=== PATIENT | female | born 1985 | race Caucasian/White ===

== ENCOUNTER 2019-09-13 11:22 | Emergency (ER) | payer BC ==
[2019-09-13] MEDS ORDERED: Metoclopramide 10 MG/2 ML SDV IVPUSH ONE ×2 (11:45→12:50)
--- NOTE | 2019-09-13 11:47 | EDM.PDOC ---
ED HPI GENERAL MEDICAL PROBLEM - General Chief Complaint: MANAGER ICU Problem Stated Complaint: 12 wks W/ SEVERE MIGRAINE Time Seen by Provider: 09/13/19 11:32 - History of Present Illness INITIAL COMMENTS - FREE TEXT/NARRATIVE: 33-year-old female G5, P4 at approximately 11 weeks by first trimester ultrasound who is presenting with headache and vaginal bleeding. Patient reports that she has a history of migraines and she has had a migrainous headache for the last 10 days. She has been trying Tylenol and showers without effect. Yesterday at around noon she started to develop abdominal cramping and vaginal spotting. She was seen at another ER they were unable to obtain heart tones she was given 2 L of IV fluid for her headache and subsequently discharged she reports that her labs were checked and were good at that time. She called her OB today and was referred into the ER. She reports that she has had some continued spotting. Her headache is generalized and similar to multiple prior migraine headaches. She denies other neurologic signs or symptoms. She has no abdominal pain at this time. headache Pain Score (Numeric/FACES): 8 - Related Data Allergies Allergy/AdvReac Type Severity Reaction Status Date / Time clindamycin Allergy Rash Verified 09/13/19 11:35 Home Meds: Home Meds Escitalopram [Lexapro] 10 mg PO DAILY 02/19/18 [History] Vit #76/Iron,Carb/Fa [Pnv 29-1 Tablet] 1 tab PO DAILY 02/19/18 [History ] Past Medical History HEENT History: Reports: None Cardiovascular History: Reports: None Respiratory History: Reports: None Gastrointestinal History: Reports: GERD Genitourinary History: Reports: None MANAGER ICU History: Reports: Musculoskeletal History: Reports: None Neurological History: Reports: None Psychiatric History: Reports: Anxiety, Depression Endocrine/Metabolic History: Reports: None Hematologic History: Reports: Anemia Immunologic History: Reports: None Oncologic (Cancer) History: Reports: None Dermatologic History: Reports: None - Infectious Disease History Infectious Disease History: Reports: Chicken Pox - Past Surgical History Female Surgical History: Reports: Oophorectomy Other Musculoskeletal Surgeries/Procedures:: Knee reconstruction Social & Family History - Family History Family Medical History: Noncontributory - Tobacco Use Smoking Status *Q: Never Smoker - Caffeine Use Caffeine Use: Reports: Coffee, Soda - Recreational Drug Use Recreational Drug Use: No ED ROS GENERAL - Review of Systems Review Of Systems: See Below Free Text/Narrative/Comment: General: No fever. Skin: No rash. Eyes: No vision problems. ENT: No sore throat. Neck: No neck stiffness. Respiratory: No shortness of breath. Cardiac: No chest pain. Gastrointestinal: Per HPI Urinary: Per HPI Musculoskeletal: No myalgias/arthralgias. Neurologic: No headache. ED EXAM - Physical Exam Exam: See Below Text/Narrative:: General Appearance: No acute distress, appears comfortable Skin: No rash HEENT: Normocephalic/atraumatic, sclera anicteric, mucous membranes moist Neck: Normal range of motion Chest and Lungs: Bilateral breath sounds, clear to auscultation Cardiovascular: Regular rate and rhythm, no murmur Abdomen: Soft, non-tender : Normal external female genitalia, small amount of bright red blood in the vaginal vault, small amount of clear mucus could be physiologic given , external cervical loss closed, no CMT, no abnormal masses Back: Normal Musculoskeletal: No edema or tenderness Neurologic: Awake, alert, no obvious deficits, moving all extremities Psychiatric: Appropriate, cooperative Course - Vital Signs Last Recorded V/S: Last Vital Signs Temp 99.0 F 09/13/19 15:21 Pulse 77 09/13/19 15:21 Resp 17 09/13/19 15:21 BP 110/61 09/13/19 15:21 Pulse Ox 97 09/13/19 15:21 - Orders/Labs/Meds Labs: Laboratory Tests 09/13/19 09/13/19 09/13/19 Range/Units 11:45 11:45 12:05 WBC 7.16 (4.0-11.0) K/uL RBC 4.07 L (4.30-5.90) M/uL Hgb 10.6 L (12.0-16.0) g/dL Hct 33.8 L (36.0-46.0) % MCV 83.0 (80.0-98.0) fL MCH 26.0 L (27.0-32.0) pg MCHC 31.4 (31.0-37.0) g/dL RDW Std Deviation 44.2 (28.0-62.0) fl RDW Coeff of [place] 14 (11.0-15.0) % Plt Count 263 (150-400) K/uL MPV 10.20 (7.40-12.00) fL Neut % (Auto) 67.0 (48.0-80.0) % Lymph % (Auto) 24.3 (16.0-40.0) % [place] % (Auto) 7.0 (0.0-15.0) % Eos % (Auto) 1.4 (0.0-7.0) % Baso % (Auto) 0.3 (0.0-1.5) % Neut # (Auto) 4.8 (1.4-5.7) K/uL Lymph # (Auto) 1.7 (0.6-2.4) K/uL [place] # (Auto) 0.5 (0.0-0.8) K/uL Eos # (Auto) 0.1 (0.0-0.7) K/uL Baso # (Auto) 0.0 (0.0-0.1) K/uL Nucleated RBC % 0.0 /100WBC Nucleated RBCs # 0 K/uL Sodium 140 (136-145) mmol/L Potassium 3.5 (3.5-5.1) mmol/L Chloride 106 (98-107) mmol/L Carbon Dioxide 24.1 (21.0-32.0) mmol/L BUN 6 L (7.0-18.0) mg/dL Creatinine 0.6 (0.6-1.0) mg/dL Est Cr Clr Drug Dosing 103.50 mL/min Estimated GFR (MDRD) > 60.0 ml/min Glucose 82 (74-106) mg/dL Calcium 8.3 L (8.5-10.1) mg/dL Total Bilirubin 0.4 (0.2-1.0) mg/dL AST 16 (15-37) IU/L ALT 20 (14-63) IU/L Alkaline Phosphatase 42 L (46-116) U/L Total Protein 6.7 (6.4-8.2) g/dL Albumin 3.5 (3.4-5.0) g/dL Globulin 3.2 (2.6-4.0) g/dL Albumin/Globulin Ratio 1.1 (0.9-1.6) Urine Color Urine Appearance Urine pH (5.0-8.0) Ur Specific [place] (1.001-1.035) Urine Protein (NEGATIVE) mg/dL Urine Glucose (UA) (NEGATIVE) mg/dL Urine Ketones (NEGATIVE) mg/dL Urine Occult Blood (NEGATIVE) Urine Nitrite (NEGATIVE) Urine Bilirubin (NEGATIVE) Urine Urobilinogen (<2.0) EU/dL Ur Leukocyte Esterase (NEGATIVE) Urine RBC (0-2/HPF) Urine WBC (0-5/HPF) Ur Epithelial Cells (NONE-FEW) Urine Bacteria (NEGATIVE) [place] species DNA NEGATIVE (NEGATIVE) Gardnerella DNA Probe POSITIVE H (NEGATIVE) Trichomonas DNA Probe NEGATIVE (NEGATIVE) 09/13/19 Range/Units 13:40 WBC (4.0-11.0) K/uL RBC (4.30-5.90) M/uL Hgb (12.0-16.0) g/dL Hct (36.0-46.0) % MCV (80.0-98.0) fL MCH (27.0-32.0) pg MCHC (31.0-37.0) g/dL RDW Std Deviation (28.0-62.0) fl RDW Coeff of [place] (11.0-15.0) % Plt Count (150-400) K/uL MPV (7.40-12.00) fL Neut % (Auto) (48.0-80.0) % Lymph % (Auto) (16.0-40.0) % [place] % (Auto) (0.0-15.0) % Eos % (Auto) (0.0-7.0) % Baso % (Auto) (0.0-1.5) % Neut # (Auto) (1.4-5.7) K/uL Lymph # (Auto) (0.6-2.4) K/uL [place] # (Auto) (0.0-0.8) K/uL Eos # (Auto) (0.0-0.7) K/uL Baso # (Auto) (0.0-0.1) K/uL Nucleated RBC % /100WBC Nucleated RBCs # K/uL Sodium (136-145) mmol/L Potassium (3.5-5.1) mmol/L Chloride (98-107) mmol/L Carbon Dioxide (21.0-32.0) mmol/L BUN (7.0-18.0) mg/dL Creatinine (0.6-1.0) mg/dL Est Cr Clr Drug Dosing mL/min Estimated GFR (MDRD) ml/min Glucose (74-106) mg/dL Calcium (8.5-10.1) mg/dL Total Bilirubin (0.2-1.0) mg/dL AST (15-37) IU/L ALT (14-63) IU/L Alkaline Phosphatase (46-116) U/L Total Protein (6.4-8.2) g/dL Albumin (3.4-5.0) g/dL Globulin (2.6-4.0) g/dL Albumin/Globulin Ratio (0.9-1.6) Urine Color YELLOW Urine Appearance HAZY Urine pH 7.0 (5.0-8.0) Ur Specific [place] 1.010 (1.001-1.035) Urine Protein NEGATIVE (NEGATIVE) mg/dL Urine Glucose (UA) NEGATIVE (NEGATIVE) mg/dL Urine Ketones NEGATIVE (NEGATIVE) mg/dL Urine Occult Blood MODERATE H (NEGATIVE) Urine Nitrite NEGATIVE (NEGATIVE) Urine Bilirubin NEGATIVE (NEGATIVE) Urine Urobilinogen 0.2 (<2.0) EU/dL Ur Leukocyte Esterase NEGATIVE (NEGATIVE) Urine RBC 1-5 (0-2/HPF) Urine WBC 0-1 (0-5/HPF) Ur Epithelial Cells RARE (NONE-FEW) Urine Bacteria RARE (NEGATIVE) [place] species DNA (NEGATIVE) Gardnerella DNA Probe (NEGATIVE) Trichomonas DNA Probe (NEGATIVE) Meds: Medications Discontinued Medications Generic Name Dose Route Start Last Admin Trade Name Freq PRN Reason Stop Dose Admin Diphenhydramine HCl 25 mg 09/13/19 12:50 09/13/19 12:58 Benadryl IVPUSH 09/13/19 12:51 25 mg ONETIME ONE Administration Metoclopramide HCl 10 mg 09/13/19 11:45 09/13/19 11:54 Reglan IVPUSH 09/13/19 11:46 10 mg ONETIME ONE Administration Metoclopramide HCl 20 mg 09/13/19 12:50 09/13/19 12:58 Reglan IVPUSH 09/13/19 12:51 20 mg ONETIME ONE Administration Morphine Sulfate 8 mg 09/13/19 13:59 Morphine IVPUSH 09/13/19 14:00 ONETIME ONE Departure - Departure Time of Disposition: 15:09 Disposition: Home, Self-Care 01 Condition: Good Clinical Impression: Migraine, Incomplete miscarriage - Discharge Information Instructions: Migraine Headache, [id number] Referrals: Cody Schroeder Jr, PA-C [Primary Care Provider] - Forms: ED Department Discharge Additional Instructions: As you discussed with Dr. Arvizu you are free to take your medications at home to help improve your migraine. Please be sure to follow-up with them in clinic next week to talk more about your miscarriage. If in the coming days your bleeding worsens to the point that you are soaking through 2 pads or tampons within an hour for 2 more hours, or if you develop shortness of breath lightheadedness or chest pain, then please return to the ER so that we can do another exam and check your blood counts again. The following information is given to patients seen in the emergency department who are being discharged to home. This information is to outline your options for follow-up care. We provide all patients seen in our emergency department with a follow-up referral. The need for follow-up, as well as the timing and circumstances, are variable depending upon the specifics of your emergency department visit. If you don't have a primary care physician on staff, we will provide you with a referral. We always advise you to contact your personal physician following an emergency department visit to inform them of the circumstance of the visit and for follow-up with them and/or the need for any referrals to a consulting specialist. The emergency department will also refer you to a specialist when appropriate. This referral assures that you have the opportunity for follow-up care with a specialist. All of these measure are taken in an effort to provide you with optimal care, which includes your follow-up. Under all circumstances we always encourage you to contact your private physician who remains a resource for coordinating your care. When calling for follow-up care, please make the office aware that this follow-up is from your recent emergency room visit. If for any reason you are refused follow-up, please contact the [facility] Emergency Department at and asked to speak to the emergency department charge nurse. Sepsis Event Note - Evaluation Sepsis Screening Result: No Definite Risk - Focused Exam Vital Signs: Vital Signs Temp Pulse Resp BP Pulse Ox 09/13/19 15:21 99.0 F 77 17 110/61 97 09/13/19 14:35 89 18 109/83 100 09/13/19 14:05 86 18 121/53 L 97 09/13/19 13:45 67 18 98/53 L 99 09/13/19 13:15 74 18 106/60 98 09/13/19 13:01 91 16 97/57 L 100 09/13/19 11:36 97.3 F 83 18 122/73 100 Date Exam was Performed: 09/13/19 Time Exam was Performed: 19:04 - Assessment/Plan Assessment:: 33-year-old female presenting with migraine headache and vaginal bleeding in the setting of her semester . Clinically well-appearing. Will do a bedside ultrasound to assess heart tones if unable to obtain reassuring heart tones can consider formal ultrasound at that time. CBC CMP ordered as well patient a positive from prior in the chart so no need to repeat that. Patient was recently tested for gonorrhea and chlamydia and was negative. Will repeat vaginitis screen however. Pelvic exam is pending. Regarding headache it is similar to multiple prior migraines. No concern for intracranial hemorrhage meningitis, encephalitis or other acute DIRECTOR OF STRATEGIC SALES pathology be a migraine headache. Attempted bedside ultrasound was unable to obtain reliable heart tone though I do see what appears to be an intrauterine gestation. Formal ultrasound is been ordered. Pelvic exam demonstrates ongoing bleeding consistent with vaginal bleeding and early . But no pooling no active hemorrhage and cervix closed. Pt was given a 2nd dose of reglan, 20mg wiht 25mg benadryl with good improvement in her headache. Pt's labs notable for + Gardnerella but otherwise unremarkable. US with no heart motion. Patient discussed with Dr. Arvizu who is neonatal social worker for the patient's OB. She will come talk to the patient and discuss her options. Dr. Arvizu came and spoke to the patient. Her headache is improved and the patient will follow-up in OB clinic next week regarding the miscarriage.
[2019-09-13 12:13] LABS: BLOOD UREA NITROGEN,BUN 6 mg/dL (7.0-18.0); CARBON DIOXIDE,CO2 24.1 mmol/L (21.0-32.0); CHLORIDE,CL 106 mmol/L (98-107); GLUCOSE RANDOM 82 mg/dL (74-106); POTASSIUM,K 3.5 mmol/L (3.5-5.1); SODIUM,NA 140 mmol/L (136-145)
[2019-09-13] MEDS ORDERED: diphenhydrAMINE 50 MG/ML SDV IVPUSH ONE (12:50)
[2019-09-13] MEDS ORDERED: Morphine 10 MG/ML Syringe IVPUSH ONE (13:59)
--- NOTE | 2019-09-13 14:15 | US ---
INDICATION: Migraine, spotting TECHNIQUE: Ultrasound OB pelvis transabdominal and transvaginal. Real time mcdonald scale imaging of the pelvis was performed. COMPARISON: None FINDINGS: Sonographic imaging demonstrates a single intrauterine gestational sac w with a pole identified and crown-rump length of 0.98 centimeters consistent with a gestational age of 8 weeks 4 days. No heart motion identified. Yolk sac not identified. The cervix is closed. The myometrium appears normal. The ovaries are of normal size. There are no suspicious fluid collections noted in the cul-de-sac. IMPRESSION: Single intrauterine gestation with crown-rump length consistent with a gestational age of 8 weeks 4 days. No evidence for heart motion. Correlate with beta HCG levels. Follow up recommended to evaluate for demise. Dictated by Eric Macdonald MD @ 09/13/2019 2:14:59 PM Dictated by: Eric Macdonald MD @ 09/13/2019 14:15:03 (Electronically Signed)
--- NOTE | 2019-09-13 15:47 | PCM.CONS ---
H&P History of Present Illness - General Date of Service: 09/13/19 Admit Problem/Dx: Headache Vaginal spotting in Source of Information: Patient History Limitations: Reports: No Limitations - History of Present Illness Initial Comments - Free Text/Narative: Patient notified clinic of continued migraine headache this AM. Had presented to [facility] overnight after migraine unresponsive to conservative measures at home. Patient had developed mild spotting and cramping last evening. Discussed presenting to [place] ER this morning for headache management and evaluation of spotting, as unable to dopple FHTs in [place] ER last night. In the ER, patient received IV fluids and Reglan, with some improvement headache. Spotting has continued, no heavy bleeding or severe abdominal cramping. 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 History: Reports: Endometriosis, (10w4d by LMP c/w 9wk US) : 5 Para: 4 Musculoskeletal History: Reports: None, Fibromyalgia Neurological History: Reports: Migraines Psychiatric History: Reports: Anxiety, Depression Endocrine/Metabolic History: Reports: None Hematologic History: Reports: Anemia Immunologic History: Reports: None Oncologic (Cancer) History: Reports: None Dermatologic History: Reports: None - Infectious Disease History Infectious Disease History: Reports: Chicken Pox - Past Surgical History Female Surgical History: Reports: Oophorectomy Other Musculoskeletal Surgeries/Procedures:: Knee reconstruction Social & Family History - Family History Family Medical History: Noncontributory Cardiac: Reports: Aneurysm (paternal grandmother) Respiratory: Reports: Asthma (daughter) OBGYN: Reports: Fibroids (mother) Oncologic: Reports: Breast (maternal grandmother), Prostate (maternal grandfather, paternal grandfather) - Tobacco Use Smoking Status *Q: Never Smoker - Caffeine Use Caffeine Use: Reports: Coffee, Soda - Recreational Drug Use Recreational Drug Use: No H&P Review of Systems - Review of Systems: Review Of Systems: See Below General: Reports: No Symptoms HEENT: Reports: Headaches Pulmonary: Reports: No Symptoms Cardiovascular: Reports: No Symptoms Gastrointestinal: Reports: Abdominal Pain (mild) Genitourinary: Reports: No Symptoms Musculoskeletal: Reports: No Symptoms Skin: Reports: No Symptoms Psychiatric: Reports: No Symptoms Neurological: Reports: No Symptoms Hematologic/Lymphatic: Reports: No Symptoms Immunologic: Reports: No Symptoms Exam - Exam Exam: See Below - Vital Signs Vital Signs: Last Vital Signs Temp 36.3 C 09/13/19 11:36 Pulse 89 09/13/19 14:35 Resp 18 09/13/19 14:35 BP 109/83 09/13/19 14:35 Pulse Ox 100 09/13/19 14:35 Weight: 58.967 kg - Exam General: Alert, Oriented, 4 Neck: Supple Lungs: Clear to Auscultation, Normal Respiratory Effort Cardiovascular: Regular Rate, Regular Rhythm GI/Abdominal Exam: Soft, Non-Tender (Female) Exam: Deferred Extremities: Non-Tender, No Pedal Edema Skin: Warm, Dry, Intact Neuro Extensive - Mental Status: Alert, Oriented x3, Normal Mood/Affect Psychiatric: Alert, Normal Affect, Normal Mood - Patient Data Lab Results Last 24 hrs: Laboratory Results - last 24 hr 09/13/19 09/13/19 09/13/19 Range/Units 11:45 11:45 12:05 WBC 7.16 (4.0-11.0) K/uL RBC 4.07 L (4.30-5.90) M/uL Hgb 10.6 L (12.0-16.0) g/dL Hct 33.8 L (36.0-46.0) % MCV 83.0 (80.0-98.0) fL MCH 26.0 L (27.0-32.0) pg MCHC 31.4 (31.0-37.0) g/dL RDW Std Deviation 44.2 (28.0-62.0) fl RDW Coeff of [place] 14 (11.0-15.0) % Plt Count 263 (150-400) K/uL MPV 10.20 (7.40-12.00) fL Neut % (Auto) 67.0 (48.0-80.0) % Lymph % (Auto) 24.3 (16.0-40.0) % [place] % (Auto) 7.0 (0.0-15.0) % Eos % (Auto) 1.4 (0.0-7.0) % Baso % (Auto) 0.3 (0.0-1.5) % Neut # (Auto) 4.8 (1.4-5.7) K/uL Lymph # (Auto) 1.7 (0.6-2.4) K/uL [place] # (Auto) 0.5 (0.0-0.8) K/uL Eos # (Auto) 0.1 (0.0-0.7) K/uL Baso # (Auto) 0.0 (0.0-0.1) K/uL Nucleated RBC % 0.0 /100WBC Nucleated RBCs # 0 K/uL Sodium 140 (136-145) mmol/L Potassium 3.5 (3.5-5.1) mmol/L Chloride 106 (98-107) mmol/L Carbon Dioxide 24.1 (21.0-32.0) mmol/L BUN 6 L (7.0-18.0) mg/dL Creatinine 0.6 (0.6-1.0) mg/dL Est Cr Clr Drug Dosing 103.50 mL/min Estimated GFR (MDRD) > 60.0 ml/min Glucose 82 (74-106) mg/dL Calcium 8.3 L (8.5-10.1) mg/dL Total Bilirubin 0.4 (0.2-1.0) mg/dL AST 16 (15-37) IU/L ALT 20 (14-63) IU/L Alkaline Phosphatase 42 L (46-116) U/L Total Protein 6.7 (6.4-8.2) g/dL Albumin 3.5 (3.4-5.0) g/dL Globulin 3.2 (2.6-4.0) g/dL Albumin/Globulin Ratio 1.1 (0.9-1.6) Urine Color Urine Appearance Urine pH (5.0-8.0) Ur Specific [place] (1.001-1.035) Urine Protein (NEGATIVE) mg/dL Urine Glucose (UA) (NEGATIVE) mg/dL Urine Ketones (NEGATIVE) mg/dL Urine Occult Blood (NEGATIVE) Urine Nitrite (NEGATIVE) Urine Bilirubin (NEGATIVE) Urine Urobilinogen (<2.0) EU/dL Ur Leukocyte Esterase (NEGATIVE) Urine RBC (0-2/HPF) Urine WBC (0-5/HPF) Ur Epithelial Cells (NONE-FEW) Urine Bacteria (NEGATIVE) [place] species DNA NEGATIVE (NEGATIVE) [place]rella DNA Probe POSITIVE H (NEGATIVE) Trichomonas DNA Probe NEGATIVE (NEGATIVE) 09/13/19 Range/Units 13:40 WBC (4.0-11.0) K/uL RBC (4.30-5.90) M/uL Hgb (12.0-16.0) g/dL Hct (36.0-46.0) % MCV (80.0-98.0) fL MCH (27.0-32.0) pg MCHC (31.0-37.0) g/dL RDW Std Deviation (28.0-62.0) fl RDW Coeff of [place] (11.0-15.0) % Plt Count (150-400) K/uL MPV (7.40-12.00) fL Neut % (Auto) (48.0-80.0) % Lymph % (Auto) (16.0-40.0) % [place] % (Auto) (0.0-15.0) % Eos % (Auto) (0.0-7.0) % Baso % (Auto) (0.0-1.5) % Neut # (Auto) (1.4-5.7) K/uL Lymph # (Auto) (0.6-2.4) K/uL [place] # (Auto) (0.0-0.8) K/uL Eos # (Auto) (0.0-0.7) K/uL Baso # (Auto) (0.0-0.1) K/uL Nucleated RBC % /100WBC Nucleated RBCs # K/uL Sodium (136-145) mmol/L Potassium (3.5-5.1) mmol/L Chloride (98-107) mmol/L Carbon Dioxide (21.0-32.0) mmol/L BUN (7.0-18.0) mg/dL Creatinine (0.6-1.0) mg/dL Est Cr Clr Drug Dosing mL/min Estimated GFR (MDRD) ml/min Glucose (74-106) mg/dL Calcium (8.5-10.1) mg/dL Total Bilirubin (0.2-1.0) mg/dL AST (15-37) IU/L ALT (14-63) IU/L Alkaline Phosphatase (46-116) U/L Total Protein (6.4-8.2) g/dL Albumin (3.4-5.0) g/dL Globulin (2.6-4.0) g/dL Albumin/Globulin Ratio (0.9-1.6) Urine Color YELLOW Urine Appearance HAZY Urine pH 7.0 (5.0-8.0) Ur Specific [place] 1.010 (1.001-1.035) Urine Protein NEGATIVE (NEGATIVE) mg/dL Urine Glucose (UA) NEGATIVE (NEGATIVE) mg/dL Urine Ketones NEGATIVE (NEGATIVE) mg/dL Urine Occult Blood MODERATE H (NEGATIVE) Urine Nitrite NEGATIVE (NEGATIVE) Urine Bilirubin NEGATIVE (NEGATIVE) Urine Urobilinogen 0.2 (<2.0) EU/dL Ur Leukocyte Esterase NEGATIVE (NEGATIVE) Urine RBC 1-5 (0-2/HPF) Urine WBC 0-1 (0-5/HPF) Ur Epithelial Cells RARE (NONE-FEW) Urine Bacteria RARE (NEGATIVE) [place]acia species DNA (NEGATIVE) Gardnerella DNA Probe (NEGATIVE) Trichomonas DNA Probe (NEGATIVE) Result Diagrams: 09/13/19 11:45 09/13/19 11:45 Sepsis Event Note - Evaluation Sepsis Screening Result: No Definite Risk - Focused Exam Vital Signs: Vital Signs Temp Pulse Resp BP Pulse Ox 09/13/19 14:35 89 18 109/83 100 09/13/19 14:05 86 18 121/53 L 97 09/13/19 13:45 67 18 98/53 L 99 09/13/19 13:15 74 18 106/60 98 09/13/19 13:01 91 16 97/57 L 100 09/13/19 11:36 36.3 C 83 18 122/73 100 Date Exam was Performed: 09/13/19 Time Exam was Performed: 15:41 Consult PN Assessment/Plan Procedures: Procedures ASSAY OF FERRITIN (01/23/18) ASSAY OF FOLIC ACID SERUM (01/23/18) ASSAY THYROID STIM HORMONE (03/04/18) BILIRUBIN DIRECT (09/05/17) ACACIA DNA DIR PROBE (09/03/19) COMPLETE CBC AUTOMATED (04/16/18) COMPLETE CBC W/AUTO DIFF WBC (10/13/13) COMPREHEN METABOLIC PANEL (09/05/17) CT ABD & PELVIS W/O CONTRAST (08/19/13) CULTURE OTHR SPECIMN AEROBIC (10/06/15) CULTURE SCREEN ONLY (01/23/18) ECHO EXAM OF ABDOMEN (09/11/17) NON-STRESS TEST (02/19/18) ZAIDI VAG DNA DIR PROBE (09/03/19) GLUCOSE TEST (11/28/17) HPV HIGH-RISK TYPES (12/27/16) HYDRATE IV INFUSION ADD-ON (08/19/13) IRON BINDING TEST (01/23/18) MRI JNT OF LWR EXTRE W/O DYE (06/02/14) ROUTINE VENIPUNCTURE (10/13/13) SMEAR WET M[place] SALINE/INK (03/12/14) THER/PROPH/DIAG INJ IV PUSH (08/19/13) THER/PROPH/DIAG INJ SC/IM (08/19/13) TISSUE EXAM BY PATHOLOGIST (11/24/15) TRICHOMONAS VAGIN DIR PROBE (09/03/19) TX/PRO/DX INJ NEW DRUG ADDON (08/19/13) TX/PRO/DX INJ SAME DRUG INTERPERSONAL COMMUNICATIONS PROFESSOR (08/19/13) URINALYSIS AUTO W/SCOPE (08/19/13) URINE BACTERIA CULTURE (08/19/13) URINE CULTURE/COLONY COUNT (12/31/17) US EXAM ABDOM COMPLETE (08/19/13) VITAMIN B-12 (01/23/18) VITAMIN D 25 HYDROXY (09/05/17) X-RAY EXAM KNEE 4 OR MORE (06/19/17) (1) Missed SNOMED Code(s): 52732294 Code(s): O02.1 - MISSED Priority: High Current Visit: Yes (2) Migraine SNOMED Code(s): 27602386 Code(s): G43.909 - MIGRAINE, UNSP, NOT INTRACTABLE, WITHOUT STATUS MIGRAINOSUS Priority: High Current Visit: Yes Problem List Initiated/Reviewed/Updated: Yes Plan: 33yo @ 10w4d by LMP c/w 9wk US 1. Missed : Discussed US results with patient. Reviewed most miscarriages thought to be due to spontaneous genetic mutations. Discussed patient did not cause the miscarriage and could not have prevented it from happening. Reviewed options, including expectant, medical, and surgical management. Patient would like to focus on headache management at this time and follow-up in clinic to further discuss miscarriage management. Reviewed bleeding precautions. Will follow-up in clinic on Sunday or Sunday. 2. Migraine: Patient states she has Imitrex and Excedrin at home. Reviewed these are safe to take at this time. 3. Dispo: Discharge home.
[2019-09-13 18:46] VITALS: BP 110/61; PULSE 77
== END 2019-09-13 15:25 | disposition home or self-care (01) ==
LOC: MW.ED 11:22
DX: O03.4 Incomplete spontaneous abortion without complication (principal); G43.909 Migraine, unspecified, not intractable, without status migrainosus; F41.9 Anxiety disorder, unspecified; F32.9 Major depressive disorder, single episode, unspecified; Z88.1 Allergy status to other antibiotic agents; Z79.899 Other long term (current) drug therapy
CPT/HCPCS: 76801; 80053; 81001; 85025; 87480; 87510; 87660; 96374; 96375; 96376; 99284; J1200; J2765; 99283

== ENCOUNTER 2021-05-05 06:36 | Day surgery (SDC) | payer BC ==
[~2021-05-05 06:36] MED LIST: Lactated Ringers 1,000 ML IV SCH
[2021-05-05] MEDS ORDERED: Chloroprocaine 10 MG/ML 5 ML Amp ONE (07:12)
[2021-05-05] MEDS ORDERED: Scopolamine 1.5 MG Transdermal Patch ONE (07:20)
[2021-05-05] MEDS ORDERED: Methylergonovine 0.2 MG/1 ML Amp ONE (07:27)
[2021-05-05] MEDS ORDERED: HYDROmorphone 1 MG/ML Syringe IVPUSH PRN (07:37)
[2021-05-05] MEDS ORDERED: fentaNYL 100 MCG/2 ML SDV IVPUSH PRN (07:37)
[2021-05-05] MEDS ORDERED: Metoclopramide 10 MG/2 ML SDV IVPUSH PRN (07:37)
[2021-05-05] MEDS ORDERED: Albuterol 0.083% 2.5 MG/3 ML Neb Soln NEB PRN (07:37)
[2021-05-05] MEDS ORDERED: Ondansetron 4 MG/2 ML SDV IVPUSH PRN (07:37)
[2021-05-05] MEDS ORDERED: Morphine 4 MG/ML VIAL IVPUSH PRN (07:37)
[2021-05-05] MEDS ORDERED: Naloxone 0.4 MG/ML SDV IVPUSH PRN (07:37)
--- NOTE | 2021-05-05 07:39 | PCM.PREANE ---
Preanesthetic Assessment - Anesthesia/Transfusion/Family Hx Anesthesia History: Prior Anesthesia Without Reaction Transfusion History: No Prior Transfusion(s) - Review of Systems General: No Symptoms Pulmonary: No Symptoms Cardiovascular: No Symptoms Gastrointestinal: No Symptoms Neurological: No Symptoms Other: Reports: None - Physical Assessment NPO Status Date: 05/05/21 NPO Status Time: 00:00 Vital Signs: Last Vital Signs Temp 97.7 F 05/05/21 06:45 Pulse 76 05/05/21 06:45 Resp 15 05/05/21 06:45 BP 113/75 05/05/21 06:45 Pulse Ox 100 05/05/21 06:45 Height: 5 ft 2 in Weight: 136 lb ASA Class: 1 Mental Status: Alert & Oriented x3 Airway Class: Mallampati = 1 Dentition: Reports: Normal Dentition Thyro-Mental Finger Breadths: 3 Mouth Opening Finger Breadths: 3 ROM/Head Extension: Full Lungs: Clear to Auscultation, Normal Respiratory Effort Cardiovascular: Regular Rate, Regular Rhythm - Lab Values: Laboratory Last Values WBC 6.50 K/uL (4.0-11.0) 05/04/21 13:32 RBC 4.62 M/uL (4.30-5.90) 05/04/21 13:32 Hgb 12.6 g/dL (12.0-16.0) 05/04/21 13:32 Hct 39.0 % (36.0-46.0) 05/04/21 13:32 MCV 84.4 fL (80.0-98.0) 05/04/21 13:32 MCH 27.3 pg (27.0-32.0) 05/04/21 13:32 MCHC 32.3 g/dL (31.0-37.0) 05/04/21 13:32 RDW Std Deviation 46.9 fl (28.0-62.0) 05/04/21 13:32 RDW Coeff of [place] 15 % (11.0-15.0) 05/04/21 13:32 Plt Count 320 K/uL (150-400) 05/04/21 13:32 MPV 10.30 fL (7.40-12.00) 05/04/21 13:32 Nucleated RBC % 0.0 /100WBC 05/04/21 13:32 Nucleated RBCs # 0 K/uL 05/04/21 13:32 Blood Type A POSITIVE 05/04/21 13:32 Antibody Screen NEGATIVE 05/04/21 13:32 - Allergies Allergies/Adverse Reactions: Allergies Allergy/AdvReac Type Severity Reaction Status Date / Time clindamycin Allergy Rash Verified 05/04/21 12:52 - Acknowledgements Anesthesia Type Planned: General Anesthesia Pt an Appropriate Candidate for the Planned Anesthesia: Yes Alternatives and Risks of Anesthesia Discussed w Pt/Guardian: Yes Pt/Guardian Understands and Agrees with Anesthesia Plan: Yes PreAnesthesia Questionnaire HEENT History: Reports: Other (See Below) Other HEENT History: wears contacts/glasses Cardiovascular History: Reports: None Respiratory History: Reports: None Gastrointestinal History: Reports: None Genitourinary History: Reports: None [employer] History: Reports: Musculoskeletal History: Reports: Fibromyalgia Neurological History: Reports: Migraines Psychiatric History: Reports: Anxiety, Depression Endocrine/Metabolic History: Reports: None Hematologic History: Reports: Anemia Immunologic History: Reports: None Oncologic (Cancer) History: Reports: None Dermatologic History: Reports: None - Infectious Disease History Infectious Disease History: Reports: Chicken Pox Other Infectious Disease History: states was positive for COVID in Jan 2021 - Past Surgical History Head Surgeries/Procedures: Reports: None HEENT Surgical History: Reports: Tonsillectomy Cardiovascular Surgical History: Reports: None Respiratory Surgical History: Reports: None GI Surgical History: Reports: None Female Surgical History: Reports: Cervical Cryotherapy, Cystectomy, Oophorectomy, Other (See Below) Other Female Surgeries/Procedures: hx laparoscopy with ovarian cystectomy Endocrine Surgical History: Reports: None Neurological Surgical History: Reports: None Musculoskeletal Surgical History: Reports: Other (See Below) Other Musculoskeletal Surgeries/Procedures:: left Knee reconstruction x2 Oncologic Surgical History: Reports: None Dermatological Surgical History: Reports: None - SUBSTANCE USE Tobacco Use Status *Q: Never Tobacco User - HOME MEDS Home Medications: Home Meds Escitalopram [Lexapro] 10 mg PO DAILY 02/19/18 [History] Vit #76/Iron,Carb/Fa [Pnv 29-1 Tablet] 1 tab PO DAILY 02/19/18 [History] Progesterone, Micronized [Progesterone] 200 mg PO BID 05/04/21 [History] - CURRENT (IN HOUSE) MEDS Current Meds: Current Medications Lactated Ringer's (Ringers, Lactated) 1,000 mls @ 125 mls/hr IV ASDIRECTED LAISHA Discontinued Medications Chloroprocaine HCl (Chloroprocaine 10 Mg/Ml 5 Ml Amp) Confirm Administered Dose 5 ml .ROUTE .STK-MED ONE Stop: 05/05/21 07:13 Methylergonovine Maleate (Methylergonovine 0.2 Mg/1 Ml Amp) Confirm Administered Dose 0.2 mg .ROUTE .STK-MED ONE Stop: 05/05/21 07:28 Scopolamine (Scopolamine 1.5 Mg Transdermal Patch) Confirm Administered Dose 1.5 mg .ROUTE .STK-MED ONE Stop: 05/05/21 07:21
--- NOTE | 2021-05-05 08:30 | PCM.POSTAN ---
POST ANESTHESIA ASSESSMENT - MENTAL STATUS Mental Status: Alert, Oriented - VITAL SIGNS Vital Signs: Last Vital Signs Temp 36.5 C 05/05/21 06:45 Pulse 76 05/05/21 06:45 Resp 15 05/05/21 06:45 BP 113/75 05/05/21 06:45 Pulse Ox 100 05/05/21 06:45 - RESPIRATORY Respiratory Status: Respiratory Rate WNL, Airway Patent, O2 Saturation Stable - CARDIOVASCULAR CV Status: Pulse Rate WNL, Blood Pressure Stable - GASTROINTESTINAL GI Status: No Symptoms - POST OP HYDRATION Hydration Status: Adequate & Stable
--- NOTE | 2021-05-05 08:30 | PCM48HPAN ---
Post Anesthesia Note - EVALUATION WITHIN 48HRS OF ANESTHETIC Vital Signs in Normal Range: Yes Patient Participated in Evaluation: Yes Respiratory Function Stable: Yes Airway Patent: Yes Cardiovascular Function Stable: Yes Hydration Status Stable: Yes Pain Control Satisfactory: Yes Nausea and Vomiting Control Satisfactory: Yes Mental Status Recovered: Yes Vital Signs: Last Vital Signs Temp 36.5 C 05/05/21 06:45 Pulse 76 05/05/21 06:45 Resp 15 05/05/21 06:45 BP 113/75 05/05/21 06:45 Pulse Ox 100 05/05/21 06:45
--- NOTE | 2021-05-05 08:33 | PCM.OPNOTE ---
- General Post-Op/Procedure Note Date of Surgery/Procedure: 05/05/21 Operative Procedure(s): suction dilatation and curettage Findings: preop uterus retroverted 10 week size, sounds to 10 cm, postop uterus firm 8 weeks sized. No remaining products of conception on ultrasound at completion of the procedure. Pre Op Diagnosis: Missed Post-Op Diagnosis: Same Anesthesia Technique: General LMA Primary Surgeon: Alise Nuno Anesthesia Provider: Hanane Lr Pathology: products of conception for chromosome studies; products of conception Fluid Replacement, Intraop: 1,000 EBL in mLs: 50 Complications: None Known Condition: Good
--- NOTE | 2021-05-05 10:51 | US ---
IPatient: JOCELINE EVANS [facility] . Site : 1985 Study: US-OB Pelvis intraoperative-05/05/2021 9:40:17 AM Ordering Physician: Yaakov Carrero Final Report: Indication: D&C. Technique: Intraoperative ultrasound. Comparison: None. Findings/Impression: Intraoperative ultrasound was provided for purposes of a D&C. Dictated by Matheus Ruiz MD @ 05/05/2021 10:50:48 AM Signed by: Matheus Ruiz MD @05/05/2021 10:50:48 AM (Electronic Signature) Report Signed by Proxy. BEATRICE
[2021-05-05 13:16] VITALS: BP 116/69; PULSE 67
--- NOTE | 2021-05-05 14:37 | OR ---
SURGEON: Alise Nuno M.D. DATE OF PROCEDURE: 05/05/2021 PREOPERATIVE DIAGNOSIS: Missed . POSTOPERATIVE DIAGNOSIS: Missed . PROCEDURE: Suction dilatation and curettage. PRIMARY SURGEON: Alise Nuno M.D. ANESTHESIA: General LMA. ESTIMATED BLOOD LOSS: 50 mL. FINDINGS: Uterus retroverted, sounds to 10 cm. Postop uterus firm, 8 weeks size with no remaining tissue on ultrasound guidance. COMPLICATIONS: None known. DISPOSITION: Stable to Recovery. PATHOLOGY SPECIMEN: Fresh tissue for chromosome analysis and products of conception. BRIEF HISTORY: This is a 35-year-old female. She presented for her initial new OB visit. She was at 9 weeks gestation. Ultrasound showed a fetus at 8 weeks 2 days with no cardiac activity and she had, had a prior ultrasound confirming cardiac activity. This is consistent with embryonic or early demise and she was provided with options including expectant management, vaginal Cytotec, or suction dilatation and curettage. She desires to proceed with suction dilatation and curettage with risks discussed including bleeding, infection, uterine perforation with injury to surrounding viscera, risk of thromboembolic event, risk of anesthesia. Understanding all these risks, she does desire to proceed. Additionally, she does desire to have chromosome analysis on tissue if possible. DESCRIPTION OF PROCEDURE: With the patient in dorsal lithotomy position, under adequate LMA analgesia, the perineum and vagina were prepped with Betadine and draped in usual fashion for vaginal surgery. SCDs were in place. The bladder had been drained and an appropriate time-out was held. Bimanual examination revealed a retroverted 8- week size uterus, and under ultrasound guidance, the cervix was dilated and graspers were utilized to collect fresh tissue. 10 straight suction curette was then utilized after dilatation to a 10 mm Hegar dilator and the tissue was partially extruded and collected again for chromosome analysis. Then, under ultrasound guidance, repetitive passes with the suction curette was performed under direct guidance until all tissue was removed. Sharp curettage was gently performed at the 12, 3, 6, and 9 o'clock position and there was a good uterine cry. Final suction curettage was performed and the instruments were removed from the vagina. There was minimal bleeding. Final inspection with the uterus tilted in an anteverted position for better visualization revealed no retained products of conception. Therefore, final sponge, needle, and instrument counts were counted and were correct. There were no known complications. The patient was transferred to Recovery in good condition. GAURAV RANGEL /[id number]
== END 2021-05-05 09:40 | disposition home or self-care (01) ==
LOC: MW.SDS 06:36
PROVIDERS: ATTEND Obstetrics & Gynecology
DX: O02.1 Missed abortion (principal); F32.A Depression, unspecified; G43.909 Migraine, unspecified, not intractable, without status migrainosus; Z87.891 Personal history of nicotine dependence; Z79.899 Other long term (current) drug therapy; Z88.1 Allergy status to other antibiotic agents
CPT/HCPCS: 36415; 59820; 76998; 85027; 86850; 86900; 86901; A9270; J7120; 01965; J2210; J2400